=== PATIENT | female | born 1935 | race Caucasian/White ===

== ENCOUNTER 2019-08-02 10:00 | Emergency (ER) | payer MEDICARE ==
[~2019-08-02] VITALS: Ht 157.5 cm; Wt 45.4 kg
[2019-08-02] VITALS (11 sets, daily range): BP systolic 78–125; BP diastolic 38–69
--- NOTE | 2019-08-02 10:00 | NUR ---
ED Nurse Note: Patient brought in by [facility] from an assisted living c/o unwitnessed seizure accompanied by hypotension. in the field patients blood pressure was 78/38. patient arrived to the ED with a nonrebreather, patient is hot to touch and unresponsive and non verbal. placed 18 gauge on left ac on patient. started patient on fluids, placed on a electronic device monitor.
--- NOTE | 2019-08-02 10:04 | NUR ---
ED Nurse Note: Patient intubated. right lip 22cm 7.0 efe
[2019-08-02] MEDS ORDERED: SERTRALINE HCL25 MG ORAL (10:05)
[2019-08-02] MEDS ORDERED: TRAZODONE HCL50 MG ORAL (10:05)
[2019-08-02] MEDS ORDERED: ATORVASTATIN CA20 MG ORAL (10:05)
[2019-08-02] MEDS ORDERED: FUROSEMIDE20 M1 ORAL (10:05)
[2019-08-02] MEDS ORDERED: LOSARTAN POTASS50 MG ORAL (10:05)
[2019-08-02] MEDS ORDERED: FOSAMAX70 MG ORAL (10:05)
--- NOTE | 2019-08-02 10:05 | NUR ---
ED Nurse Note: Patient presents with a rectal temp of 99.4 rectal and has redness located on her sacral area.
[2019-08-02] MEDS ORDERED: Lidocaine 1% Plain 30 ml INJ ONE ×2 (10:12→10:45)
[2019-08-02] MEDS ORDERED: Sodium Chloride 1,400 ML IVLG ONE (10:15)
[2019-08-02] MEDS ORDERED: Cefepime HCl 2 GM in NS 110 ML IV SCH (10:15)
[2019-08-02] MEDS ORDERED: Vancomycin 1 GM in NS 275 ML IV ONE (10:15)
--- NOTE | 2019-08-02 10:25 | Emergency Room Report ---
History of Present Illness General Chief Complaint: Seizure Source: Medical Record Present Illness HPI Patient is a 84-year-old female brought in by EMS after witnessed seizure. Patient did not have prior history of seizure disorder. Patient was brought in by EMS. She apparently had a second seizure witnessed by paramedics. Patient had been noted to be very warm as well as hypotensive during transport. Patient 's history is markedly limited by patient's mental status. She was noted to be unresponsive and had been given 5 mg of Versed due to seizure activity. She was noted to be warm to the touch. Allergies: Coded Allergies: No Known Allergies (Unverified , 08/02/19) Patient History Past Medical History: see triage record Reviewed Nursing Documentation: PMH: Agreed; PSxH: Agreed Nursing Documentation-PMH Past Medical History: No History, Except For Hx Asthma: Yes Review of Systems All Other Systems: limited - Patient is a history is limited by acuity. Physical Exam Vital Signs Date Time Temp Pulse Resp B/P (MAP) Pulse Ox O2 Delivery O2 Flow Rate FiO2 08/02/19 09:59 138 22 173/38 (83) 98 Non-Rebreather General Appearance: lethargic, Chronically Ill Head: normocephalic Eyes: bilateral eye other - pupils unreactive ENT: dry mucus membranes Neck: limited range of motion Respiratory: lungs clear, rhonchi Cardiovascular #1: normal inspection, tachycardia Gastrointestinal: normal inspection, normal bowel sounds, non tender, soft Musculoskeletal: normal inspection Neurologic: motor weakness, other - poor alertness, nonresponsive, no gag reflex Psychiatric: depressed affect Skin: no rash Procedures Critical Care Time Critical Care Time Patient had a critical medical condition which untreated could potentially result in life or limb threatening injury. Total critical care time excluding procedures approximately 45 minutes. Central Line Central Line : Consent: Emergent Central Line Lumen: triple Maximal Sterile Barrier Tech: yes cap, yes mask, yes sterile gown, yes sterile gloves, yes large sterile sheet, yes hand hygiene, yes chlorhexidine prep Central Line Postion: subclavian (R) Anesthesia: Lidocaine cc's of anesthesia: 5 Complications: none Central Line Post Position: sutured, good blood return Attempts: One Patient Tolerated: Well Complications: None Intubation Intubation : Consent: Emergent Time of Intubation: 10:11 Intubation Method: orotracheal Tube Size (cm): 7.0 Breath Sounds after Intubation: equal Intubation Complications: no complications Post Intubation Xray: Yes Attempts: One Patient Tolerated: Well Complications: None Medical Decision Making Diagnostic Impression: Primary Impression: Intracranial hemorrhage Additional Impressions: Status epilepticus Meningioma Hypernatremia Sepsis Urinary tract infection Dementia ER Course Patient presented for seizure and hypotension. Differential diagnosis include was not limited to sepsis, CVA, overdose, electrolyte abnormality, meningitis, encephalitis among others. Because of complexity of patient's case laboratory tests and imaging studies were ordered. Prehospital glucose was noted to be 180s.Chest x-ray post intubation showed adequate endotracheal tube placement as well as adequate central line placement. There was noted to be some surgical clips in the right axilla. There is no evident pneumothorax or effusion and no infiltrates noted. Prehospital EKG showed sinus tachycardia with a rate in the Patient was started on IV fluids due to hypotension. She was noted to have initial blood pressure low by EMS and been started on IV fluids. Patient's blood pressure continued to be low and central venous access was placed for possible pressor management emergently.prehospital EKG interpreted by me showed sinus tachycardia with a rate of approximately [address] changes. Patient was started on IV fluids and was noted to have initial marked somnolence.Patient had recurrent seizure while in the emergency department. Was given IV Ativan.Seizure lasted approximately 2 minutes. `Patient had recurrence of seizure was subsequently given Dilantin. She was started on a Diprivan drip. Arterial blood gas showed no severe acidosis. The patient's medical records were ordered from [place] and patient apparently has some prior history of dementia and is currently on losartan atorvastatin Fosamax trazodone and Lasix. Multiple focal area of hyperattenuation consistent with hemorrhage in the right parietal lobe see radiology report for full details. Patient was discussed with Dr. Toth at [facility] patient will be transferred to [facility] for higher level of care. Patient had a additional seizure after discussion with Dr. Toth and was given additional 2 mg of Ativan IV. Labs Test 08/02/19 10:00 08/02/19 10:07 08/02/19 10:15 Urine Color Yellow Urine Appearance Slightly cloudy Urine pH 5 (4.5-8.0) Urine Specific [place] 1.015 (1.005-1.035) Urine Protein 2+ (NEGATIVE) Urine Glucose (UA) Negative (NEGATIVE) Urine Ketones 1+ (NEGATIVE) Urine Blood 4+ (NEGATIVE) Urine Nitrite Positive (NEGATIVE) Urine Bilirubin Negative (NEGATIVE) Urine Urobilinogen 1 MG/DL (0.0-1.0) Urine Leukocyte Esterase 3+ (NEGATIVE) Urine RBC 5-10 /HPF (0 - 2) Urine WBC 60-80 /HPF (0 - 2) Urine Squamous Epithelial Cells Few /LPF (NONE/OCC) Urine Bacteria Moderate /HPF (NONE) Arterial Blood pH 7.462 (7.350-7.450) Arterial Blood Partial Pressure CO2 28.8 mmHg (35.0-45.0) Arterial Blood Partial Pressure O2 466.1 mmHg (75.0-100.0) Arterial Blood HCO3 20.1 mmol/L (22.0-26.0) Arterial Blood Oxygen Saturation 99.6 % (95-100) Arterial Blood Base Excess -2.4 (-2-2) [place] Test Positive White Blood Count 13.0 K/UL (4.8-10.8) Red Blood Count 5.00 M/UL (4.20-5.40) Hemoglobin 15.0 G/DL (12.0-16.0) Hematocrit 46.4 % (37.0-47.0) Mean Corpuscular Volume 93 FL (80-99) Mean Corpuscular Hemoglobin 30.1 PG (27.0-31.0) Mean Corpuscular Hemoglobin Concent 32.5 G/DL (32.0-36.0) Red Cell Distribution Width 13.2 % (11.6-14.8) Platelet Count 177 K/UL (150-450) Mean Platelet Volume 11.1 FL (6.5-10.1) Neutrophils (%) (Auto) % (45.0-75.0) Lymphocytes (%) (Auto) % (20.0-45.0) Monocytes (%) (Auto) % (1.0-10.0) Eosinophils (%) (Auto) % (0.0-3.0) Basophils (%) (Auto) % (0.0-2.0) Differential Total Cells Counted 100 Neutrophils % (Manual) 82 % (45-75) Lymphocytes % (Manual) 10 % (20-45) Monocytes % (Manual) 8 % (1-10) Eosinophils % (Manual) 0 % (0-3) Basophils % (Manual) 0 % (0-2) Band Neutrophils 0 % (0-8) Platelet Estimate Adequate Platelet Morphology Normal Red Blood Cell Morphology Normal Prothrombin Time 12.1 SEC (9.30-11.50) Prothromb Time International Ratio 1.1 (0.9-1.1) Activated Partial Thromboplast Time 21 SEC (23-33) Sodium Level 160 MMOL/L (136-145) Potassium Level 3.3 MMOL/L (3.5-5.1) Chloride Level 121 MMOL/L (98-107) Carbon Dioxide Level 26 MMOL/L (21-32) Anion Gap 14 mmol/L (5-15) Blood Urea Nitrogen 63 mg/dL (7-18) Creatinine 2.1 MG/DL (0.55-1.30) Estimat Glomerular Filtration Rate mL/min (>60) Glucose Level 140 MG/DL (74-106) Lactic Acid Level 4.30 mmol/L (0.4-2.0) Calcium Level 9.2 MG/DL (8.5-10.1) Phosphorus Level 1.9 MG/DL (2.5-4.9) Magnesium Level 2.1 MG/DL (1.8-2.4) Total Bilirubin 0.6 MG/DL (0.2-1.0) Aspartate Amino Transf (AST/SGOT) 17 U/L (15-37) Alanine Aminotransferase (ALT/SGPT) 17 U/L (12-78) Alkaline Phosphatase 104 U/L (46-116) Total Creatine Kinase 61 U/L (26-308) Creatine Kinase MB 1.5 NG/ML (0.0-3.6) Creatine Kinase MB Relative Index 2.4 Troponin I 0.169 ng/mL (0.000-0.056) Pro-B-Type Natriuretic Peptide 604 pg/mL (0-125) Total Protein 6.7 G/DL (6.4-8.2) Albumin 2.8 G/DL (3.4-5.0) Globulin 3.9 g/dL Albumin/Globulin Ratio 0.7 (1.0-2.7) EKG Diagnostic Results Rate: tachycardiac Rhythm: NSR ST Segments: no acute changes Last Vital Signs Date Time Temp Pulse Resp B/P (MAP) Pulse Ox O2 Delivery O2 Flow Rate FiO2 08/02/19 09:59 138 22 173/38 (83) 98 Non-Rebreather Status: unchanged Disposition: XFER SHT-TRM HOSP Condition: Critical Charles Collado MD Aug 02, 2019 10:25
[2019-08-02] MEDS ORDERED: LORazepam Inj 2mg/ml 1ml ONE ×2 (10:37→14:27)
[2019-08-02] MEDS ORDERED: LORazepam Inj 2mg/ml 1ml IV ONE ×2 (10:45→14:30)
[2019-08-02 10:46] LABS: HEMATOCRIT 46.4 % (37.0-47.0); MEAN CORPUSCULAR VOLUME 93 FL (80-99); PLATELET COUNT 177 K/UL (150-450); RED CELL DISTRIBUTION WIDTH 13.2 % (11.6-14.8)
[2019-08-02 10:51] LABS: INR 1.1 (0.9-1.1)
[2019-08-02 11:05] LABS: ALANINE AMINOTRANSFERASE 17 U/L (12-78); ALBUMIN 2.8 G/DL (3.4-5.0); ALBUMIN/GLOBULIN RATIO 0.7 (1.0-2.7); ALKALINE PHOSPHATASE 104 U/L (46-116); ANION GAP 14 mmol/L (5-15); ASPARTATE AMINO TRANSFERASE 17 U/L (15-37); BILIRUBIN,TOTAL 0.6 MG/DL (0.2-1.0); BLOOD UREA NITROGEN 63 mg/dL (7-18); CALCIUM 9.2 MG/DL (8.5-10.1); CARBON DIOXIDE 26 MMOL/L (21-32); CHLORIDE 121 MMOL/L (98-107); CKMB 1.5 NG/ML (0.0-3.6); CREATINE KINASE 61 U/L (26-308); CREATININE 2.1 MG/DL (0.55-1.30); PHOSPHORUS 1.9 MG/DL (2.5-4.9); POTASSIUM 3.3 MMOL/L (3.5-5.1); SODIUM 160 MMOL/L (136-145)
[2019-08-02 11:09] LABS: APPEARANCE,URINE SLIGHTLY CLOUDY; BILIRUBIN, URINE NEGATIVE (NEGATIVE); GLUCOSE, URINE (UA) NEGATIVE (NEGATIVE); KETONES,URINE 1+ (NEGATIVE); LEUKOCYTE ESTERASE ,URINE 3+ (NEGATIVE); NITRITE,URINE POSITIVE (NEGATIVE); PH,URINE 5 (4.5-8.0); PROTEIN,URINE 2+ (NEGATIVE); UROBILINOGEN,URINE 1 MG/DL (0.0-1.0)
[2019-08-02] MEDS ORDERED: Phenytoin 1,000 MG in NS 275 ML IVPB ONE (11:15)
[2019-08-02 11:20] LABS: COLOR,URINE YELLOW
[2019-08-02] MEDS ORDERED: Levophed 4mg/4mL Inj IV ONE (12:04)
--- NOTE | 2019-08-02 12:16 | Diagnostic Imaging Report ---
Indication: Shortness of breath Technique: One view of the chest Comparison: none Findings: There is an endotracheal tube in place, tip terminating in good position approximately 4 cm above the laura. There is a right subclavian central venous catheter, tip of which projects at the level of the mid superior vena cava. There is some atelectasis at the left lung base. Lungs and pleural spaces are otherwise clear. No pneumothorax. Right chest surgical clips are noted. The heart size is normal. The aorta is tortuous and calcified. There are cholecystectomy clips Impression: Satisfactory endotracheal intubation Satisfactory right subclavian central venous catheter placement, no radiographically evident complication Left basilar atelectasis. No acute pulmonary process
--- NOTE | 2019-08-02 13:15 | Diagnostic Imaging Report ---
Indications: Witnessed seizure Technique: Spiral acquisitions obtained through the brain. Angled axial and coronal 5 x 5 mm slices were reconstructed. Total dose length product 2434 mGycm. CTDI vol(s) 62 x 2 mGy. Dose reduction achieved using automated exposure control Comparison: None. Findings: Multiple foci of hyperattenuation, consistent with hemorrhage are seen within the high right parietal lobe, interspersed with areas of low-attenuation consistent with edema. Some of the high attenuation appears to be within sulci rather than parenchyma. Overall, the area of abnormality measures approximately 3.3 cm transverse by 3.1 cm AP by 5 cm craniocaudad. The largest individual focus of hemorrhage measures proximally 14 x 13 mm. This results in mild local mass effect, manifested by attenuation of its lateral sulci. No significant midline shift is evident. There is an unusually high attenuation structure running along the left vertex into the left subarachnoid space. The course is characteristic of a cortical vein, but this is unusually highly attenuating. There is also unusually high attenuation of the superior sagittal sinus and the left transverse sinus. No other acute hemorrhage or edema. There is age-related enlargement of the ventricles and extra axial CSF spaces. There is periventricular deep white matter hypoattenuation consistent with chronic microvascular ischemic change. There is suggestion of a hyperattenuating mass at the right cerebellar pontine angle measuring 10 x 7 mm. This is triangular in shape, and appears separate from the internal auditory canal. Questionably a similar smaller lesion is seen on the left measuring 5 x 5 mm. There is focal thickening of the lateral tentorium on the left. 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 There is some sphenoid sinus disease noted. The mastoids are clear. The calvarium is intact. There is evidence of prior bilateral cataract surgery. Impression: Cluster of small focal parenchymal hemorrhages with surrounding edema seen in the high right parietal lobe. There is evidence of adjacent subarachnoid hemorrhage as well. The subarachnoid hemorrhage probably just represents leakage of parenchymal hemorrhage into the subarachnoid space. Findings may represent a primary parenchymal hemorrhage, hemorrhagic infarct, or hemorrhagic tumor. However, presence of very dense superior sagittal sinus, left transverse sinus, and at least one very dense cortical vein raises the possibility of sinus thrombosis; if that is the case then findings could represent a hemorrhagic venous infarct. Recommend contrast MRI for better characterization Focal thickening of the left lateral tentorium. Probably chest a manifestation of the above sinus findings, but small meningioma also possible, particularly given stated clinical history of meningioma Small triangular cerebellopontine angle areas of high attenuation. May represent small hyperattenuating tumors, less likely hemorrhage. Likewise, evaluation with contrast MRI is recommended No significant mass effect Chronic and age-related changes, as described Critical value findings discussed by phone with Dr. Collado at the time of interpretation The CT scanner at [facility] is accredited by the [employer] and the scans are performed using protocols designed to limit radiation exposure to as low as reasonably achievable to attain images of sufficient resolution adequate for diagnostic evaluation.
--- NOTE | 2019-08-02 14:30 | NUR ---
ED Nurse Note: Patient had another episode of seizure. 2mg ativan given
--- NOTE | 2019-08-02 14:31 | NUR ---
ED Nurse Note: Patient had another seizure lasting 3 minutes, ativan 2mg given. received order to titrate propofol to 10 mcg
--- NOTE | 2019-08-02 14:45 | NUR ---
ED Nurse Note: Patient has had another episode of seizure. Per Dr. Collado, increased propofol to 20mcg and levophed to 10 mcg
--- NOTE | 2019-08-02 15:45 | NUR ---
ER DISCHARGE NOTE: Patient is being transferred to [facility] ICU accompanied by critical care transport team and an ERMD. patient is still being transfused levophed and propofol.
--- NOTE | 2019-08-07 17:07 | Cardiology Report ---
APPROVED REPORT EKG Measurement Heart [id number] [place] 130P39 [id number] Sinus tachycardia Otherwise normal ECG
== END 2019-08-02 15:45 | disposition short-term general hospital (02) ==
LOC: EDBD 10:00 → EMR 10:49
DX: A41.9 Sepsis, unspecified organism (principal); N39.0 Urinary tract infection, site not specified; I62.9 Nontraumatic intracranial hemorrhage, unspecified; G40.901 Epilepsy, unspecified, not intractable, with status epilepticus; D32.9 Benign neoplasm of meninges, unspecified; E87.0 Hyperosmolality and hypernatremia; F03.90 Unspecified dementia, unspecified severity, without behavioral disturbance, psychotic disturbance, mood disturbance, and anxiety
CPT/HCPCS: 31500; 36415; 36569; 36600; 70450; 71045; 80053; 81003; 82550; 82553; 82803; 83605; 83735; 83880; 84100; 84478; 84484; 85007; 85025; 85610; 85730; 87040; 87086; 93005; 94002; 94003; 94664; 96365; 96366; 96367; 96375; 99291; J1165; J2001; J2704; J3370; J3490; J7050; J7030